=== PATIENT | female | born 1990 | race African-American/Black ===

== ENCOUNTER 2019-04-13 20:25 | Emergency (ER) | payer BC ==
[~2019-04-13] VITALS: Ht 160 cm; Wt 88.0 kg
[2019-04-13 21:44] VITALS: BP 141/83
[2019-04-13] MEDS ORDERED: IBUPROFEN 600MG TABLET PO ONE (23:00)
== END 2019-04-13 23:52 | disposition home or self-care (01) ==
LOC: ER 20:25
DX: M54.2 Cervicalgia (principal); V49.88XA Car occupant (driver) (passenger) injured in other specified transport accidents, initial encounter; Y93.89 Activity, other specified; Y92.89 Other specified places as the place of occurrence of the external cause; Y99.8 Other external cause status
CPT/HCPCS: 99284